=== PATIENT | male | born 1975 | race Caucasian/White ===

== ENCOUNTER 2017-03-09 18:53 | Emergency (ER) | payer SELFPAY ==
[~2017-03-09] VITALS: Ht 190.5 cm; Wt 113.4 kg
[2017-03-09 19:06] VITALS: BP 127/84
--- NOTE | 2017-03-09 19:29 | ED INFLUENZA/URI COMPLAINT ---
History of Present Illness General Chief Complaint: Ear Complaints Stated Complaint: RIGHT EAR PAIN Source: patient Exam Limitations: no limitations Vital Signs & Intake/Output Vital Signs & Intake/Output Vital Signs Date Time Temp Pulse Resp B/P B/P Pulse O2 O2 Flow FiO2 Mean Ox Delivery Rate 03/09 194 Room Air 03/09 1906 97.2 104 15 127/84 95 Room Air Room Air ED Intake and Output 03/10 0000 03/09 1200 Intake Total Output Total Balance Patient 250 lb Weight Weight Reported by Patient Measurement Method Allergies Coded Allergies: No Known Allergies (03/09/17) Reconcile Medications Amoxicillin/Potassium Clav (Augmentin 875-125 Tablet) 875 MG-125 MG TABLET 1 TAB PO BID RIGHT EAR INFECTION Ciprofloxacin HCl/Dexameth (Ciprodex Otic Suspension) 0.3 %-0.1 % DROPS.SUSP 4 GTT OT TID OTITIS EXTERNA X 7 DAYS Triage Note: PT TO ED FOR R EAR PAIN FOR A WEEK. PT THINKS HE PERFERATED HIS EARDRUM BECAUSE HE CAN'T HEAR AFTER CLEANING EAR WITH Q-TIP. Triage Nurses Notes Reviewed? yes Onset: Gradual Duration: day(s): Timing: recent history Severity: mild Prior Episodes/Possible Cause: no prior episodes Modifying Factors: Improves With: rest. Associated Symptoms: earache HPI: 41-year-old gentleman in prior good health presents with right ear pain since February 28. He states it began when he accidentally had some hot water from the shower poor into his right ear. He notes burning and pain. He notes that he feels like there is pain deep within his ear. He has no fever chills sinus congestion. He is otherwise well and has no other concerns. Past History Travel History Traveled to [place] past 21 day No Medical History Any Pertinent Medical History? see below for history Neurological: NONE EENT: NONE Cardiovascular: NONE Respiratory: NONE Gastrointestinal: NONE Hepatic: NONE Renal: NONE Musculoskeletal: NONE Psychiatric: NONE Endocrine: NONE Blood Disorders: NONE Cancer(s): NONE Tetanus Vaccine: 01/22/13 Surgical History Surgical History: none, non-contributory Psychosocial History What is your primary language Gu[place]ian Tobacco Use: Never used ETOH Use: denies use Illicit Drug Use: denies illicit drug use Family History Hx Contributory? No Review of Systems Review of Systems Constitutional: Reports: no symptoms. EENTM: Reports: no symptoms. Respiratory: Reports: no symptoms. Cardiovascular: Reports: no symptoms. GI: Reports: no symptoms. Genitourinary: Reports: no symptoms. Musculoskeletal: Reports: no symptoms. Skin: Reports: no symptoms. Neurological/Psychological: Reports: no symptoms. Hematologic/Endocrine: Reports: no symptoms. Immunologic/Allergic: Reports: no symptoms. All Other Systems: Reviewed and Negative Physical Exam Physical Exam General Appearance: well developed/nourished, no apparent distress Head: atraumatic, normal appearance Eyes: Bilateral: normal appearance. Ears, Nose, Throat: right ear with inflamted ear canal, mild erythema behind TM, with ample cerumen. Neck: normal inspection, supple, full range of motion Respiratory: normal breath sounds Cardiovascular: regular rate/rhythm Gastrointestinal: normal bowel sounds, soft, non-tender, no organomegaly Back: normal inspection Extremities: normal inspection Neurologic/Psych: no motor/sensory deficits, awake, alert, oriented x 3 Skin: intact, normal color, warm/dry Core Measures Severe Sepsis Present: No Septic Shock Present: No Progress Differential Diagnosis: otitis media vs externa vs other. Plan of Care: ciprodex and augmentin... close follow up advised. Initial ED EKG: none Departure Departure Disposition: HOME OR SELF CARE Condition: Stable Clinical Impression Primary Impression: Otitis media Secondary Impressions: Otitis externa Referrals: ANDERSEN BOB MODI (PCP/Family) Departure Forms: Customer Survey General Discharge Information Prescriptions: Current Visit Scripts Amoxicillin/Potassium Clav (Augmentin 875-125 Tablet) 1 TAB PO BID #20 TAB Ciprofloxacin HCl/Dexameth (Ciprodex Otic Suspension) 4 GTT OT TID #1 BOT X 7 DAYS
[2017-03-09] MEDS ORDERED: AUGMENTIN 875-1 EACH PO (19:53)
[2017-03-09] MEDS ORDERED: CIPRODEX OTIC7.5 ML OT (19:53)
== END 2017-03-09 20:08 ==
LOC: ERH 18:53
DX: H66.91 Otitis media, unspecified, right ear (principal); H60.91 Unspecified otitis externa, right ear